=== PATIENT | female | born 1970 | race Caucasian/White ===

== ENCOUNTER 2017-03-22 19:30 | Observation (INO) | payer SELFPAY ==
[2017-03-22] MEDS ORDERED: Nitroglycerin 2% Ointment Foilpak UD TOP ONE (21:00)
[2017-03-22] MEDS ORDERED: Morphine 2 mg/ml ISec IVP STA (21:00)
[2017-03-22] MEDS ORDERED: Aspirin 325 mg EC Tablets PO STA (21:00)
[2017-03-22 22:48] LABS: HEMOGLOBIN 13.5 gm/dL (12.0-16.0); MEAN CELL VOLUME 96.3 fL (80.0-105.0); MEAN CORPUSCULAR HEMOGLOBIN 33.4 pg (25.0-35.0); MEAN CORPUSCULAR HGB CONC 34.7 g/dl (31.0-37.0); MEAN PLATELET VOLUME 10.4 fl (7.0-11.0); RBC 4.04 10^6/uL (3.5-6.1); RED CELL DISTRIBUTION WIDTH 13.3 % (11.5-14.5); WHITE BLOOD COUNT 6.5 10^3/ul (4.5-11.0)
[2017-03-22 22:50] LABS: INR 0.97 (0.93-1.08); PARTIAL THROMBOPLASTIN TIME 28.3 Seconds (23.7-30.8); PROTHROMBIN TIME 10.5 Seconds (9.9-11.8)
[2017-03-22 22:51] LABS: ALB/GLOB RATIO 1.3 (1.1-1.8); ALBUMIN 4.1 g/dL (3.0-4.8); ALT/SGPT 25 U/L (7-56); AST/SGOT 24 U/L (15-39); BLOOD UREA NITROGEN 23 mg/dL (7-21); CALCIUM 9.2 mg/dL (8.4-10.5); GFR AFRICAN-AMERICAN > 60; GFR NON-AFRICAN AMERICAN > 60; TROPONIN I < 0.01 ng/mL
--- NOTE | 2017-03-22 23:00 | CP.PCM.HP ---
<Stef Dang - Last Filed: 03/22/17 23:06> History of Present Illness - History of Present Illness History of Present Illness: cc: bilateral arm parasthesias HPI: Patient is a 46yo female with history of migraines that presents c/o bilateral arm parasthesias that started at 2pm. Patient reported that she experienced bilateral arm shooting pain and numbness that radiates into her neck and into the back of her head. She reports having had multiple episodes in the past that typically last 15minutes. Attempted to take ibuprofen but that provided minimal relief. No apparent alleviating or exacerbating factors. She denied any chest pain, palpitations or shortness of breath. She states that the pain is also associated with mild headache. Denies abdominal pain, nausea, vomiting, fever, chills, cough. 12point ROS as per hpi above otherwise negative pmhx: migraines pshx: tubal ligation allergies: NKDA social hx: tobacco use since age 11, ~6-7 cig/day; admits to marijuana use; occasional etoh use; denies IV drug use/heroine/cocaine family hx: father: cardiac arrest, schizoaffective disorder; mother: hypertension Present on Admission - Present on Admission Any Indicators Present on Admission: No Past Patient History - Tetanus Immunizations Tetanus Immunization: Up to Date - Past Social History Smoking Status: Heavy Smoker > 10 Cigarettes Daily - PSYCHIATRIC Hx Depression: No Hx Emotional Abuse: No Hx Physical Abuse: No Hx Substance Use: Yes (marijuana occasionally) - SURGICAL HISTORY Hx Tubal Ligation: Yes Meds Allergies/Adverse Reactions: Allergies Allergy/AdvReac Type Severity Reaction Status Date / Time No Known Allergies Allergy Verified 09/22/14 16:11 Physical Exam - Constitutional Appears: Well, Non-toxic, No Acute Distress - Head Exam Head Exam: ATRAUMATIC, NORMAL INSPECTION, NORMOCEPHALIC - Eye Exam Eye Exam: EOMI, PERRL. absent: Scleral icterus - ENT Exam ENT Exam: Mucous Membranes Moist - Neck Exam Neck exam: Positive for: Normal Inspection. Negative for: Tenderness, Thyromegaly - Respiratory Exam Respiratory Exam: Clear to Auscultation Bilateral. absent: Rales, Rhonchi, Wheezes - Cardiovascular Exam Cardiovascular Exam: RRR, +S1, +S2. absent: Gallop, JVD, Rubs, Systolic Murmur - GI/Abdominal Exam GI & Abdominal Exam: Normal Bowel Sounds, Soft. absent: Distended, Firm, Guarding, Rigid, Tenderness - Extremities Exam Extremities exam: Positive for: normal inspection, pedal pulses present. Negative for: calf tenderness, pedal edema, tenderness - Neurological Exam Neurological exam: Alert, CN II-XII Intact, Oriented x3 - Expanded Neurological Exam Expanded Patient oriented to: person, place, time Speech: Fluid Speech Cranial nerves: EOM's Intact: Normal Neuro motor strength exam: Left Upper Extremity: 5, Right Upper Extremity: 5, Left Lower Extremity: 5, Right Lower Extremity: 5 Coma Scale Eye Opening: SPONTANEOUS Coma Scale Motor Response: OBEYS COMMANDS Coma Scale Verbal: Oriented Coma Scale Total: 15 - Psychiatric Exam Psychiatric exam: Normal Affect, Normal Mood - Skin Skin Exam: Dry, Intact, Normal Color, Warm Results - Vital Signs Recent Vital Signs: Last Vital Signs Temp Pulse 90 03/22/17 22:18 Resp 22 03/22/17 22:18 BP 99/61 L 03/22/17 22:18 Pulse Ox 97 03/22/17 22:18 - Labs Result Diagrams: 03/22/17 20:10 03/22/17 20:10 Assessment & Plan - Assessment and Plan (Free Text) Plan: 46yo female with history of migraines presents c/o bilateral arm parasthesias 1. Bilateral arm parasthesias -Presently resolved with no pain/numbness -CBC/CMP unremarkable -Troponin negative x1, will trend -EKG revealed normal sinus rhythm with possible left atrial enlargement, T wave abnormality; no acute ST elevations -CXR revealed no active disease -Head CT revealed no acute intracranial pathology -Lipid panel/TSH pending -Neurology consulted - Dr. Dewitt Patient seen and case discussed with attending, Dr. Heller - Date & Time Date: 03/22/17 Time: 23:03 <America Heller - Last Filed: 03/23/17 06:30> Results - Vital Signs Recent Vital Signs: Last Vital Signs Temp 98.2 F 03/23/17 00:15 Pulse 80 03/23/17 00:15 Resp 16 03/23/17 00:15 BP 96/57 L 03/23/17 00:15 Pulse Ox 97 03/22/17 22:18 - Labs Result Diagrams: 03/22/17 20:10 03/22/17 20:10 Addendum Addendum: 03/23/17 06:28 pt with hx of substance abuse (gi ) used this morninig came to the ER fo bilateral shoulder and upper arm pain and numbness resolved now.
[2017-03-23 00:38] VITALS: BMI 21.9
[2017-03-23 06:38] VITALS: O2SAT 94
[2017-03-23 07:17] LABS: BASO # 0.01 K/mm3 (0.0-2.0); BASO % 0.2 % (0.0-3.0); EOS # 0.1 (0.0-0.7); EOS % 2.2 % (1.5-5.0); GRAN # 2.55 (1.4-6.5); GRAN % 51.9 % (50.0-68.0); HEMOGLOBIN 12.2 gm/dL (12.0-16.0); LYMPH # 1.7 (1.2-3.4); LYMPH % 33.7 % (22.0-35.0); MEAN CELL VOLUME 96.8 fL (80.0-105.0); MEAN CORPUSCULAR HEMOGLOBIN 32.2 pg (25.0-35.0); MEAN CORPUSCULAR HGB CONC 33.2 g/dl (31.0-37.0); MEAN PLATELET VOLUME 10.5 fl (7.0-11.0); MONO # 0.6 (0.1-0.6); PLATELET COUNT 252 10^3/uL (120.0-450.0); RBC 3.79 10^6/uL (3.5-6.1); RED CELL DISTRIBUTION WIDTH 13.3 % (11.5-14.5); WHITE BLOOD COUNT 4.9 10^3/ul (4.5-11.0)
[2017-03-23 07:46] LABS: ALB/GLOB RATIO 1.3 (1.1-1.8); ALBUMIN 3.5 g/dL (3.0-4.8); ALT/SGPT 20 U/L (7-56); AST/SGOT 20 U/L (15-39); BLOOD UREA NITROGEN 26 mg/dL (7-21); CALCIUM 8.7 mg/dL (8.4-10.5); GFR AFRICAN-AMERICAN > 60; GFR NON-AFRICAN AMERICAN > 60; HDL CHOLESTEROL 40 mg/dL (29-60)
[2017-03-23 08:02] LABS: TROPONIN I < 0.01 ng/mL
[2017-03-23 08:26] LABS: LDL CHOLESTEROL 103 mg/dL (0-129)
--- NOTE | 2017-03-23 09:41 | CT ---
PROCEDURE: CT Cervical Spine without contrast HISTORY: Neck pain. No antecedent history of trauma provided. COMPARISON: None available. TECHNIQUE: Axial computed tomography images were obtained of the cervical spine without the use of intravenous contrast. Coronal and sagittal reformatted images were created and reviewed. Radiation dose: Total exam DLP = 283.73 mGy-cm. This CT exam was performed using one or more of the following dose reduction techniques: Automated exposure control, adjustment of the mA and/or kV according to patient size, and/or use of iterative reconstruction technique. FINDINGS: VERTEBRAE: No fracture. Reversal of the anatomic lordosis with kyphosis mild. No destructive bony lesion. DISCS/SPINAL CANAL/NEURAL FORAMINA: Disc degenerative changes primarily affecting lower cervical spine. Most severe changes are at C6-7 and in decreasing order C5-6 and C4-5. Non marginal osteophyte formation identified. PARASPINAL SOFT TISSUES: Unremarkable. OTHER FINDINGS: None. IMPRESSION: No acute findings related to/accounting for the clinical presentation. Additional benign and/or incidental findings described above.
--- NOTE | 2017-03-23 09:48 | CT ---
PROCEDURE: CT HEAD WITHOUT CONTRAST. HISTORY: B/L ARM NUMBNESS COMPARISON: None available. TECHNIQUE: Axial computed tomography images were obtained through the head/brain without intravenous contrast. Radiation dose: Total exam DLP = 774.23 mGy-cm. This CT exam was performed using one or more of the following dose reduction techniques: Automated exposure control, adjustment of the mA and/or kV according to patient size, and/or use of iterative reconstruction technique. FINDINGS: HEMORRHAGE: No intracranial hemorrhage. BRAIN: No mass effect or edema. No atrophy or chronic microvascular ischemic changes. VENTRICLES: Unremarkable. No hydrocephalus. CALVARIUM: Unremarkable. PARANASAL SINUSES: Unremarkable as visualized. No significant inflammatory changes. MASTOID AIR CELLS: Unremarkable as visualized. No inflammatory changes. OTHER FINDINGS: None. IMPRESSION: No acute intracranial abnormalities. No significant findings to account for the clinical presentation. Concordant results (preliminary interpretation) provided by [employer] Procedure Completed: 20:27 Preliminary ([facility]) Report: Dictated and Authenticated: 21:02 Final Interpretation: 09:41. March 23, 2017.
--- NOTE | 2017-03-23 11:22 | CP.PCM.PN ---
<Bryan Ball - Last Filed: 03/23/17 11:22> Subjective - Date & Time of Evaluation Date of Evaluation: 03/23/17 Time of Evaluation: 11:20 - Subjective Subjective: Medicine progress note. Attending: Marlene Pt seen and examined at bedside. No acute distress. No events overnight. No fevers, chills, vomiting, diarrhea. CT scan neck ordered. Objective - Vital Signs/Intake and Output Vital Signs (last 24 hours): Temp Pulse Resp BP Pulse Ox 98.7 F 85 21 98/66 L 94 L 03/23/17 06:00 03/23/17 10:00 03/23/17 06:00 03/23/17 06:00 03/23/17 06:00 Intake and Output: 03/23/17 03/23/17 06:59 18:59 Intake Total 300 Output Total 200 Balance 100 - Medications Medications: Current Medications Aspirin (Aspirin Chewable) 81 mg PO DAILY [facility] Last Admin: 03/23/17 10:06 Dose: 81 mg Famotidine (Pepcid) 20 mg PO 1000,2200 [facility] Last Admin: 03/23/17 10:06 Dose: 20 mg - Labs Labs: 03/23/17 07:10 03/23/17 07:10 PT 10.5 Seconds (9.9-11.8) 03/22/17 20:10 INR 0.97 (0.93-1.08) 03/22/17 20:10 APTT 28.3 Seconds (23.7-30.8) 03/22/17 20:10 - Constitutional Appears: Non-toxic, No Acute Distress - Head Exam Head Exam: ATRAUMATIC, NORMAL INSPECTION, NORMOCEPHALIC - Eye Exam Eye Exam: EOMI - ENT Exam ENT Exam: Mucous Membranes Moist - Neck Exam Neck Exam: Full ROM, Normal Inspection - Respiratory Exam Respiratory Exam: NORMAL BREATHING PATTERN. absent: Respiratory Distress - Cardiovascular Exam Cardiovascular Exam: +S1, +S2 - GI/Abdominal Exam GI & Abdominal Exam: Soft, Normal Bowel Sounds. absent: Tenderness - Extremities Exam Extremities Exam: Full ROM, Normal Inspection - Back Exam Back Exam: NORMAL INSPECTION - Neurological Exam Neurological Exam: Alert, Awake, Oriented x3 - Psychiatric Exam Psychiatric exam: Normal Affect, Normal Mood - Skin Skin Exam: Dry, Intact, Normal Color, Warm Assessment and Plan - Assessment and Plan (Free Text) Assessment: This is a 46 yo female with history of migraines presents c/o bilateral arm parasthesias 1. Bilateral arm parasthesias -Presently resolved with no pain/numbness -CBC/CMP unremarkable -Troponin negative -EKG revealed normal sinus rhythm with possible left atrial enlargement, T wave abnormality; no acute ST elevations -CXR revealed no active disease -Head CT revealed no acute intracranial pathology -Lipid panel/TSH pending -will order cervical spine ct -Neurology consulted - Dr. Dewitt 2. GI/DVT ppx -protonix -scds discussed with Dr. Rosario <Marlene MORENO,[facility] - Last Filed: 03/23/17 17:28> Objective - Vital Signs/Intake and Output Vital Signs (last 24 hours): Temp Pulse Resp BP Pulse Ox 99.5 F 87 20 118/58 L 94 L 03/23/17 12:00 03/23/17 12:00 03/23/17 12:00 03/23/17 12:00 03/23/17 06:00 Intake and Output: 03/23/17 03/23/17 06:59 18:59 Intake Total 300 Output Total 200 Balance 100 - Labs Labs: 03/23/17 07:10 03/23/17 07:10 PT 10.5 Seconds (9.9-11.8) 03/22/17 20:10 INR 0.97 (0.93-1.08) 03/22/17 20:10 APTT 28.3 Seconds (23.7-30.8) 03/22/17 20:10 Attending/Attestation - Attestation I have personally seen and examined this patient.: Yes I have fully participated in the care of the patient.: Yes I have reviewed all pertinent clinical information, including history, physical exam and plan: Yes Notes (Text): 03/23/17 17:22 Patient was seen and examined with medical anthropologist .Agreed with resident assessment and plan. Patient symptoms has improved.The etiology of bilateral upper extremities numbness and paresthesia lasting few minutes is unclear.Patient does not has focal deficit.CT C spine is negative for acute pathology.TSH level is normal.Serial troponins are normal.Patient is ambulatory, feeling at his base line.She will be discharged home and will follow up with PCP Management plan was discussed in detail with patient Education was provided.
--- NOTE | 2017-03-23 11:30 | RAD ---
PROCEDURE: CHEST RADIOGRAPH, 1 VIEW HISTORY: B/L ARM NUMBNESS COMPARISON: 10/28/2012. FINDINGS: LUNGS: Clear. PLEURA: No pneumothorax or pleural fluid seen. CARDIOVASCULAR: Normal. OSSEOUS STRUCTURES: No significant abnormalities. VISUALIZED UPPER ABDOMEN: Normal. OTHER FINDINGS: None. IMPRESSION: No active disease. No acute/significant interval changes.
[2017-03-23 12:19] VITALS: BP 118/58; PULSE 87; RESP 20; TEMP 99.5
--- NOTE | 2017-03-23 15:25 | CP.PCM.DIS ---
<Bryan Ball - Last Filed: 03/23/17 15:31> Provider - Provider Date of Admission: 03/22/17 21:15 Attending physician: Tamika Rosario MD Consults: Esdras Time Spent in preparation of Discharge (in minutes): 45 Hospital Course - Lab Results Lab Results: Most Recent Lab Values WBC 4.9 10^3/ul (4.5-11.0) D 03/23/17 07:10 RBC 3.79 10^6/uL (3.5-6.1) 03/23/17 07:10 Hgb 12.2 gm/dL (12.0-16.0) 03/23/17 07:10 Hct 36.7 % (36.0-48.0) 03/23/17 07:10 MCV 96.8 fL (80.0-105.0) 03/23/17 07:10 MCH 32.2 pg (25.0-35.0) 03/23/17 07:10 MCHC 33.2 g/dl (31.0-37.0) 03/23/17 07:10 RDW 13.3 % (11.5-14.5) 03/23/17 07:10 Plt Count 252 10^3/uL (120.0-450.0) 03/23/17 07:10 MPV 10.5 fl (7.0-11.0) 03/23/17 07:10 Gran % 51.9 % (50.0-68.0) 03/23/17 07:10 Lymph % (Auto) 33.7 % (22.0-35.0) 03/23/17 07:10 [place] % (Auto) 12.0 % (1.0-6.0) H 03/23/17 07:10 Eos % (Auto) 2.2 % (1.5-5.0) 03/23/17 07:10 Baso % (Auto) 0.2 % (0.0-3.0) 03/23/17 07:10 Gran # 2.55 (1.4-6.5) 03/23/17 07:10 Lymph # 1.7 (1.2-3.4) 03/23/17 07:10 [place] # 0.6 (0.1-0.6) 03/23/17 07:10 Eos # 0.1 (0.0-0.7) 03/23/17 07:10 Baso # 0.01 K/mm3 (0.0-2.0) 03/23/17 07:10 PT 10.5 Seconds (9.9-11.8) 03/22/17 20:10 INR 0.97 (0.93-1.08) 03/22/17 20:10 APTT 28.3 Seconds (23.7-30.8) 03/22/17 20:10 Sodium 140 mmol/L (132-148) 03/23/17 07:10 Potassium 4.1 mmol/L (3.6-5.0) 03/23/17 07:10 Chloride 109 mmol/L (98-107) H 03/23/17 07:10 Carbon Dioxide 24 mmol/L (21-33) 03/23/17 07:10 Anion Gap 11 (10-20) 03/23/17 07:10 BUN 26 mg/dL (7-21) H 03/23/17 07:10 Creatinine 0.5 mg/dL (0.5-1.4) 03/23/17 07:10 Est GFR ( Amer) > 60 03/23/17 07:10 Est GFR (Non-Af Amer) > 60 03/23/17 07:10 Random Glucose 91 mg/dL (70-110) 03/23/17 07:10 Calcium 8.7 mg/dL (8.4-10.5) 03/23/17 07:10 Total Bilirubin 0.5 mg/dL (0.2-1.3) 03/23/17 07:10 AST 20 U/L (15-39) 03/23/17 07:10 ALT 20 U/L (7-56) 03/23/17 07:10 Alkaline Phosphatase 51 U/L (38-133) 03/23/17 07:10 Lactate Dehydrogenase 382 U/L (333-699) 03/22/17 20:10 Total Creatine Kinase 35 U/L (35-230) 03/22/17 20:10 Troponin I < 0.01 ng/mL 03/23/17 10:41 Total Protein 6.2 g/dL (5.8-8.3) 03/23/17 07:10 Albumin 3.5 g/dL (3.0-4.8) 03/23/17 07:10 Globulin 2.7 gm/dL 03/23/17 07:10 Albumin/Globulin Ratio 1.3 (1.1-1.8) 03/23/17 07:10 Triglycerides 43 mg/dL (35-160) 03/23/17 07:10 Cholesterol 148 mg/dL (130-200) 03/23/17 07:10 LDL Cholesterol Direct 103 mg/dL (0-129) 03/23/17 07:10 HDL Cholesterol 40 mg/dL (29-60) 03/23/17 07:10 TSH 3rd Generation 1.00 mIU/mL (0.46-4.68) 03/22/17 20:10 - Hospital Course Hospital Course: Admit date- 03/22 DC date- 03/23 Attending: Marlene Toney for discharge Procedures- none No complications Discharge dx 1. B/L arm numbness and tingling HPI: see h/p Labs: see lab data Hospital course This is a 46 yo female with history of migraines presents c/o bilateral arm parasthesias 1. Bilateral arm parasthesias -Presently resolved with no pain/numbness -CBC/CMP unremarkable -Troponin negative -EKG revealed normal sinus rhythm with possible left atrial enlargement, T wave abnormality; no acute ST elevations -CXR revealed no active disease -Head CT revealed no acute intracranial pathology -Lipid panel/TSH pending -will order cervical spine ct>>> shows degenerative disc disease -Neurology consulted - Dr. Dewitt 2. GI/DVT ppx -protonix -scds DC meds 1. asa 81 mg po daily DC instructions Please dc home. Please return if condition worsens. Please f/u with neurology as needed. - Date & Time of H&P Date of H&P: 03/22/17 Time of H&P: 22:56 Discharge Exam - Head Exam Head Exam: ATRAUMATIC, NORMAL INSPECTION, NORMOCEPHALIC - Eye Exam Eye Exam: EOMI - ENT Exam ENT Exam: Mucous Membranes Moist - Respiratory Exam Respiratory Exam: NORMAL BREATHING PATTERN. absent: Chest Wall Tenderness - Cardiovascular Exam Cardiovascular Exam: +S1, +S2 - GI/Abdominal Exam GI & Abdominal Exam: Normal Bowel Sounds - Extremities Exam Extremities exam: full ROM, normal inspection - Neurological Exam Neurological exam: Alert, CN II-XII Intact, Oriented x3 - Psychiatric Exam Psychiatric exam: Normal Affect, Normal Mood - Skin Skin Exam: Dry, Intact, Normal Color, Warm Discharge Plan - Follow Up Plan Condition: STABLE Disposition: HOME/ ROUTINE Instructions: Chest Pain (GEN) Additional Instructions: Discharge to home today. Follow up with primary physician and neurologist within a week. If symptoms return or worsens please go to the Emergency Room. <Marlene MORENO,Tamika - Last Filed: 03/23/17 17:30> Provider - Provider Date of Admission: 03/22/17 21:15 Attending physician: Tamika Rosario MD Hospital Course - Lab Results Lab Results: Most Recent Lab Values WBC 4.9 10^3/ul (4.5-11.0) D 03/23/17 07:10 RBC 3.79 10^6/uL (3.5-6.1) 03/23/17 07:10 Hgb 12.2 gm/dL (12.0-16.0) 03/23/17 07:10 Hct 36.7 % (36.0-48.0) 03/23/17 07:10 MCV 96.8 fL (80.0-105.0) 03/23/17 07:10 MCH 32.2 pg (25.0-35.0) 03/23/17 07:10 MCHC 33.2 g/dl (31.0-37.0) 03/23/17 07:10 RDW 13.3 % (11.5-14.5) 03/23/17 07:10 Plt Count 252 10^3/uL (120.0-450.0) 03/23/17 07:10 MPV 10.5 fl (7.0-11.0) 03/23/17 07:10 Gran % 51.9 % (50.0-68.0) 03/23/17 07:10 Lymph % (Auto) 33.7 % (22.0-35.0) 03/23/17 07:10 [place] % (Auto) 12.0 % (1.0-6.0) H 03/23/17 07:10 Eos % (Auto) 2.2 % (1.5-5.0) 03/23/17 07:10 Baso % (Auto) 0.2 % (0.0-3.0) 03/23/17 07:10 Gran # 2.55 (1.4-6.5) 03/23/17 07:10 Lymph # 1.7 (1.2-3.4) 03/23/17 07:10 [place] # 0.6 (0.1-0.6) 03/23/17 07:10 Eos # 0.1 (0.0-0.7) 03/23/17 07:10 Baso # 0.01 K/mm3 (0.0-2.0) 03/23/17 07:10 PT 10.5 Seconds (9.9-11.8) 03/22/17 20:10 INR 0.97 (0.93-1.08) 03/22/17 20:10 APTT 28.3 Seconds (23.7-30.8) 03/22/17 20:10 Sodium 140 mmol/L (132-148) 03/23/17 07:10 Potassium 4.1 mmol/L (3.6-5.0) 03/23/17 07:10 Chloride 109 mmol/L (98-107) H 03/23/17 07:10 Carbon Dioxide 24 mmol/L (21-33) 03/23/17 07:10 Anion Gap 11 (10-20) 03/23/17 07:10 BUN 26 mg/dL (7-21) H 03/23/17 07:10 Creatinine 0.5 mg/dL (0.5-1.4) 03/23/17 07:10 Est GFR ( Amer) > 60 03/23/17 07:10 Est GFR (Non-Af Amer) > 60 03/23/17 07:10 Random Glucose 91 mg/dL (70-110) 03/23/17 07:10 Calcium 8.7 mg/dL (8.4-10.5) 03/23/17 07:10 Total Bilirubin 0.5 mg/dL (0.2-1.3) 03/23/17 07:10 AST 20 U/L (15-39) 03/23/17 07:10 ALT 20 U/L (7-56) 03/23/17 07:10 Alkaline Phosphatase 51 U/L (38-133) 03/23/17 07:10 Lactate Dehydrogenase 382 U/L (333-699) 03/22/17 20:10 Total Creatine Kinase 35 U/L (35-230) 03/22/17 20:10 Troponin I < 0.01 ng/mL 03/23/17 10:41 Total Protein 6.2 g/dL (5.8-8.3) 03/23/17 07:10 Albumin 3.5 g/dL (3.0-4.8) 03/23/17 07:10 Globulin 2.7 gm/dL 03/23/17 07:10 Albumin/Globulin Ratio 1.3 (1.1-1.8) 03/23/17 07:10 Triglycerides 43 mg/dL (35-160) 03/23/17 07:10 Cholesterol 148 mg/dL (130-200) 03/23/17 07:10 LDL Cholesterol Direct 103 mg/dL (0-129) 03/23/17 07:10 HDL Cholesterol 40 mg/dL (29-60) 03/23/17 07:10 TSH 3rd Generation 1.00 mIU/mL (0.46-4.68) 03/22/17 20:10 Attending/Attestation - Attestation I have personally seen and examined this patient.: Yes I have fully participated in the care of the patient.: Yes I have reviewed all pertinent clinical information, including history, physical exam and plan: Yes Notes (Text): 03/23/17 17:29 Please see addendum on progress note for 03/23/17
== END 2017-03-23 13:27 | disposition home or self-care (01) ==
LOC: ED 19:30 → ERH 21:15 → 2RNO 23:55
PROVIDERS: ADMIT Internal Medicine; ATTEND Internal Medicine
DX: R07.9 Chest pain, unspecified (principal); M79.602 Pain in left arm; M79.601 Pain in right arm; R20.0 Anesthesia of skin; F12.90 Cannabis use, unspecified, uncomplicated; F17.210 Nicotine dependence, cigarettes, uncomplicated; Z79.82 Long term (current) use of aspirin; Z82.41 Family history of sudden cardiac death; Z82.49 Family history of ischemic heart disease and other diseases of the circulatory system; Z81.8 Family history of other mental and behavioral disorders; Z98.51 Tubal ligation status; I51.7 Cardiomegaly; M50.323 Other cervical disc degeneration at C6-C7 level; G43.909 Migraine, unspecified, not intractable, without status migrainosus
CPT/HCPCS: 36415; 70450; 71010; 72125; 80053; 80061; 82550; 83615; 84443; 84484; 85025; 85027; 85610; 85730; 99285; G0378